=== PATIENT | female | born 1945 | race Caucasian/White ===

== ENCOUNTER 2017-05-20 12:33 | Emergency (ER) | payer MEDICARE, OTHER ==
[~2017-05-20] VITALS: Ht 157.5 cm; Wt 80.0 kg
[~2017-05-20 12:33] MED LIST: ATOR40TA16 PO; BUPR150CR PO; ENAL5TAB PO; FURO1TAB62 PO; GLIP5TAB8 PO; METR0.7537 TOPICAL; TUMS500C CHEW; VITD400 PO; ZYPR10TA PO; [UNRECOGNIZED DRUG - REMARK]
[2017-05-20 12:34] VITALS: BP 242/115; PULSE 81; RESP 20; TEMP 98.5; O2SAT 98
[2017-05-20] MEDS ORDERED: FUROSEMIDE 20 MG TAB PO ONE (13:15)
[2017-05-20] MEDS ORDERED: buPROPion HCL 100 MG SUSTAINED RELEASE TAB PO ONE (13:15)
[2017-05-20] MEDS ORDERED: ENALAPRIL MALEATE 5 MG TAB PO ONE (13:15)
[2017-05-20] MEDS ORDERED: CALCIUM CARBONATE 500 MG CHEWABLE TAB CHEW ONE (13:15)
[2017-05-20] MEDS ORDERED: ATORVASTATIN 40 MG TAB PO ONE (13:15)
[2017-05-20] MEDS ORDERED: CHOLECALCIFEROL (VIT D3) 400 UNIT TAB PO ONE (13:15)
[2017-05-20] MEDS ORDERED: glipiZIDE 5 MG TAB PO ONE (13:15)
[2017-05-20] MEDS ORDERED: OLANZapine 10 MG TAB PO ONE (13:15)
--- NOTE | 2017-05-20 13:42 | PD ---
HPI . High blood pressure Chief Complaint: Hypertension Time Seen by Provider: 13:10 Travel History International Travel<30 days: No Contact w/Intl Traveler<30days: No Traveled to known affect area: No History of Present Illness HPI This patient is a schizophrenic who has a keycase assembler. She goes to an outpatient treatment facility. Her keycase assembler is here with her and states that the patient been noted to have elevated blood pressure her last few visits. They are concerned about compliance. Patient admits that she has not taken her medications today. She is pretty adamant that she be allowed to go home and take her medicines at home. The precision lens technician tells me that they will take out a [place] Act against her if she does not take her medicines for us because she is "danger to herself" because of neglect of herself. This patient has no complaints. PFSH Past Medical History Hypertension: Yes Schizophrenia: Yes Tetanus Vaccination: < 5 Years Influenza Vaccination: No Past Surgical History Surgical History: No Previous Surgery Social History Alcohol Use: No Tobacco Use: No Substance Use: No Allergies-Medications (Allergen,Severity, Reaction): Coded Allergies: aspirin (Unverified Allergy, Mild, flushing of face, 05/20/17) ibuprofen (Unverified Allergy, Mild, flushing of face, 05/20/17) naproxen (Unverified Allergy, Mild, flushing of face, 05/20/17) Reported Meds & Prescriptions Reported Meds & Active Scripts Active Atorvastatin (Atorvastatin Calcium) 40 Mg Tab 40 Mg PO HS Enalapril (Enalapril Maleate) 5 Mg Tab 5 Mg PO DAILY Glipizide 5 Mg Tab 0.5 Tab PO DAILY Take 30 minutes before a meal Wellbutrin SR 12 HR (Bupropion HCl) 150 Mg Tab 150 Mg PO BID Lasix (Furosemide) 20 Mg Tab 20 Mg PO DAILY Reported Metronidazole Topical 0.75 % Gel 1 Applic TOPICAL BID Tums (Calcium Carbonate (Antacid)) 500 Mg Chew 2 Tab CHEW BID PRN Zyprexa (Olanzapine) 10 Mg Tab 10 Mg PO BID Vitamin D3 (Cholecalciferol) 400 Unit Tab 400 Units PO BID [No Herbals or ASA] Review of Systems Except as stated in HPI: all other systems reviewed are Neg Physical Exam Narrative Vital Signs Date Time Temp Pulse Resp B/P (MAP) Pulse Ox O2 Delivery O2 Flow Rate FiO2 05/20/17 13:36 05/20/17 12:34 98.5 81 20 242/115 (157) 98 Room Air GENERAL: Patient is awake and alert. She looks very determined. SKIN: Warm and dry. Intact. HEAD: Normocephalic/atraumatic. EYES: Pupils are equal. Extraocular movements are intact. NECK: Supple. CARDIOVASCULAR: Regular rate and rhythm. RESPIRATORY: Nonlabored respirations. MUSCULOSKELETAL: Atraumatic. NEUROLOGICAL: Nonfocal. PSYCHIATRIC: Appropriate mood and affect. Data Data Last Documented VS Vital Signs Date Time Temp Pulse Resp B/P (MAP) Pulse Ox O2 Delivery O2 Flow Rate FiO2 05/20/17 13:36 05/20/17 12:34 98.5 81 20 98 Room Air Orders Orders Atorvastatin (Lipitor) (05/20/17 13:15) Bupropion Sr 12 Hr (Wellbutrin Sr 12 Hr) (05/20/17 13:15) Calcium Carbonate Chew (Tums Chew) (05/20/17 13:15) Cholecalciferol (Vitamin D3) (05/20/17 13:15) Enalapril (Vasotec) (05/20/17 13:15) Furosemide (Lasix) (05/20/17 13:15) Glipizide (Glucotrol) (05/20/17 13:15) Olanzapine (Zyprexa) (05/20/17 13:15) Ed Discharge Order (05/20/17 13:21) [facility] Medical Decision Making Medical Screen Exam Complete: Yes Emergency Medical Condition: Yes Differential Diagnosis My differential diagnosis of high blood pressure includes but is not limited to "white coat syndrome," anxiety, essential hypertension, hypertensive emergency. Narrative Course This patient presents at the request of her precision lens technician for high blood pressure. She has multiple other medical problems. She is asymptomatic. No emergency medical condition exists at this time. I have ordered all of her usual daily medications. She will then be discharged home. Diagnosis Primary Impression: Hypertension Qualified Codes: I10 - Essential (primary) hypertension Additional Impressions: Acquired hypothyroidism Mixed hyperlipidemia Type 2 diabetes mellitus treated without insulin Schizoaffective disorder Qualified Codes: F25.9 - Schizoaffective disorder, unspecified Patient Instructions: General Instructions Departure Forms: Tests/Procedures Disposition: DISCHARGE HOME Condition: Stable Fely Price MD May 20, 2017 13:42
[2017-05-20] MEDS ORDERED: buPROPion HCL 150 MG SUSTAINED RELEASE TAB PO ONE (13:45)
== END 2017-05-20 15:01 | disposition home or self-care (01) ==
LOC: NETRI 12:33
DX: I10 Essential (primary) hypertension (principal); E03.9 Hypothyroidism, unspecified; E11.9 Type 2 diabetes mellitus without complications; F25.9 Schizoaffective disorder, unspecified; E78.2 Mixed hyperlipidemia; Z79.899 Other long term (current) drug therapy; Z88.6 Allergy status to analgesic agent
CPT/HCPCS: 99283